=== PATIENT | male | born 1965 | race Caucasian/White ===

== ENCOUNTER 2018-09-01 06:17 | Day surgery (SDC) | payer OTHER ==
[2018-09-01] MEDS ORDERED: FENTAnyl 50 MCG/ML VIAL (08:12)
[2018-09-01] MEDS ORDERED: PROPOFOL 20 ML (08:12)
[2018-09-01] MEDS ORDERED: LIDOCAINE 2% (SDV) 5 ML INJ (08:12)
[2018-09-01] MEDS ORDERED: ETOMIDATE 20 MG INJ (08:12)
[2018-09-01] MEDS ORDERED: LIDOCAINE 4% SOLUTION 50 ML BTL (08:13)
[2018-09-01] MEDS ORDERED: MIDAZOLAM 1 MG/ML 2 ML INJ (08:13)
== END 2018-09-01 11:50 | disposition home or self-care (01) ==
LOC: GIL 06:17
DX: Z12.11 Encounter for screening for malignant neoplasm of colon (principal); K64.8 Other hemorrhoids; K57.30 Diverticulosis of large intestine without perforation or abscess without bleeding; K63.5 Polyp of colon; K21.9 Gastro-esophageal reflux disease without esophagitis
CPT/HCPCS: 43239; 88305

== ENCOUNTER 2018-10-06 18:32 | Emergency (ER) | payer OTHER ==
[2018-10-06] MEDS: KETOROLAC 30 MG INJ IM (20:40)
[2018-10-06] MEDS: DEXAMETHASONE 10 MG/ML 1 ML INJ IM (20:41)
[2018-10-06] MEDS: METHOCARBAMOL 750 MG TAB PO (20:45)
== END 2018-10-06 22:47 | disposition home or self-care (01) ==
LOC: FTE 18:32
DX: M54.41 Lumbago with sciatica, right side (principal); I10 Essential (primary) hypertension; M54.42 Lumbago with sciatica, left side
CPT/HCPCS: 72131; 96372; 99285-25

== ENCOUNTER 2018-12-29 08:28 | Emergency (ER) | payer OTHER ==
[2018-12-29] MEDS: KETOROLAC 60 MG INJ IM (09:41)
[2018-12-29 09:46] LABS: ADD MAN DIFF? NO
[2018-12-29 09:53] LABS: WHITE BLOOD COUNT 4.6 10^3/ul (4.8-10.8)
[2018-12-29 09:53] LABS: BASOPHILS % 0.4 % (0.0-2.0); EOSINOPHILS # 0.1 10^3/ul (0.0-0.5); EOSINOPHILS % 1.5 % (0.0-7.0); HEMATOCRIT 44.3 % (42.0-52.0); HEMOGLOBIN 14.6 g/dl (14.0-18.0); LYMPHOCYTES # 1.8 10^3/ul (0.8-2.9); LYMPHOCYTES % 39.7 % (15.0-51.0); MEAN CORPUSCULAR HEMOGLOBIN 30.4 pg (29.0-33.0); MEAN CORPUSCULAR VOLUME 92.3 fl (82.0-101.0); MEAN PLATELET VOLUME 10.1 fl (7.4-10.4); MONOCYTE # 0.4 10^3/ul (0.3-0.9); MONOCYTES % 9.6 % (0.0-11.0); NEUTROPHIL # 2.2 10^3/ul (1.6-7.5); NEUTROPHILS % 47.9 % (39.0-77.0); PLATELET COUNT 251 10^3/UL (140-415); RED CELL DISTRIBUTION WIDTH 12.8 % (11.5-14.5)
[2018-12-29 09:55] LABS: ADD UMIC NO; UR ASCORBIC ACID NEGATIVE (NEGATIVE); UR BILIRUBIN (Dip) NEGATIVE (NEGATIVE); UR BLOOD (Dip) NEGATIVE (NEGATIVE); UR CLARITY CLEAR (CLEAR); UR COLOR STRAW (YELLOW); UR GLUCOSE (Dip) NEGATIVE (NEGATIVE); UR KETONES (Dip) NEGATIVE (NEGATIVE); UR LEUKOCYTE ESTERASE (Dip) NEGATIVE Leu/ul (NEGATIVE); UR NITRITE (Dip) NEGATIVE (NEGATIVE); UR SPECIFIC GRAVITY (Dip) 1.004 (1.003-1.030); UR TOTAL PROTEIN (Dip) NEGATIVE (NEGATIVE); UR UROBILINOGEN (Dip) NEGATIVE (NEGATIVE)
[2018-12-29 10:06] LABS: ALANINE AMINOTRANSFERASE 36 IU/L (13-69); ALBUMIN 4.3 g/dl (3.3-4.9); ALBUMIN/GLOBULIN RATIO 1.22; ALKALINE PHOSPHATASE 72 IU/L (42-121); ANION GAP 3 (5-13); ASPARTATE AMINO TRANSFERASE 26 IU/L (15-46); BILIRUBIN,INDIRECT 0.5 mg/dl (0-1.1); BILIRUBIN,TOTAL 0.5 mg/dl (0.2-1.3); BLOOD UREA NITROGEN 15 mg/dl (7-20); CALCIUM 9.5 mg/dl (8.4-10.2); CARBON DIOXIDE 29 mmol/L (21-31); CHLORIDE 106 mmol/L (97-110); CREATININE 0.81 mg/dl (0.61-1.24); Estimated GFR > 60 mL/min (>60); GLUCOSE 89 mg/dl (70-220); LIPASE 85 U/L (23-300); POTASSIUM 4.6 mmol/L (3.5-5.1); SODIUM 138 mmol/L (135-144); TOTAL PROTEIN 7.8 g/dl (6.1-8.1)
== END 2018-12-29 12:59 | disposition home or self-care (01) ==
LOC: FTE 08:28
DX: N43.3 Hydrocele, unspecified (principal); N50.819 Testicular pain, unspecified; K57.30 Diverticulosis of large intestine without perforation or abscess without bleeding; I10 Essential (primary) hypertension
CPT/HCPCS: 36415; 74176; 76870; 80053; 81003; 83690; 85025; 87591; 96372; 99285-25